=== PATIENT | male | born 1985 | race Caucasian/White ===

== ENCOUNTER 2016-07-12 22:37 | Emergency (ER) | payer MEDICARE ==
[2016-07-12 23:00] LABS: URINE BILIRUBIN NEGATIVE (NEGATIVE); URINE BLOOD NEGATIVE (NEGATIVE); URINE GLUCOSE (UA) NORMAL (NORMAL); URINE KETONE NEGATIVE (NEGATIVE); URINE LEUKOCYTE ESTERASE TRACE (NEGATIVE); URINE NITRATE NEGATIVE (NEGATIVE); URINE PROTEIN NEGATIVE (NEGATIVE); UROBILINOGEN NORMAL mg/dL (<1.0)
[2016-07-12 23:11] LABS: BASO % 0.2 % (0.2-1.2); EOS # 0.2 10_X3_uL (0.0-0.5); GRAN # 6.9 10_X3_uL (1.8-5.4); HEMATOCRIT 43.7 % (40-51); HEMOGLOBIN 14.5 g/dL (13.7-17.5); LYMPH # 2.2 10_X3_uL (1.3-3.6); LYMPH % 21.9 % (21.8-53.1); MEAN CORPUSCULAR HEMOGLOBIN 31.7 pg (27.0-33.0); MEAN CORPUSCULAR HGB CONC 33.2 g/dL (32.0-36.0); MEAN CORPUSCULAR VOLUME 95.6 fL (79-92); MEAN PLATELET VOLUME 8.9 fl (7.5-11.5); MONO # 0.7 10_X3_uL (0.3-0.8); MONO % 6.9 % (5.3-12.2); PLATELET COUNT 264 x10_3/uL (163-337); RED BLOOD COUNT 4.57 x10_6/uL (4.6-6.1)
[2016-07-12 23:12] LABS: URINE RBC 0-5 /[HPF] (0-2); URINE WBC 0-5 /[HPF] (0-3)
[2016-07-12 23:23] LABS: ALBUMIN 4.2 gm/dL (3.4-5.0); ALKALINE PHOSPHATASE 99 U/L (50-136); ALT/SGPT 395 U/L (7.53-40.17); AST/SGOT 222 U/L (6.66-35.34); BILIRUBIN,TOTAL 0.31 mg/dL (0.0-1.0); BLOOD UREA NITROGEN 8 mg/dL (7-18); CALCIUM 9.1 mg/dL (8.7-10.7); CARBON DIOXIDE 28 mmol/L (21-32); CREATININE 0.7 mg/dL (0.6-1.3); GLUCOSE,RANDOM 87 mg/dL (70-99); POTASSIUM 4.2 mmol/L (3.5-5.1); SODIUM 139 mmol/L (136-145); TOTAL PROTEIN 7.5 gm/dL (6.4-8.2)
[2016-07-12 23:26] LABS: ACETAMINOPHEN < 15.0 ug/ml (10.0-30.0); ETHYL ALCOHOL < 10 mg/dl
== END 2016-07-13 00:30 | disposition home or self-care (01) ==
LOC: ER 22:37
PROVIDERS: Emergency Medicine
DX: F32.9 Major depressive disorder, single episode, unspecified (principal); R45.851 Suicidal ideations; F41.9 Anxiety disorder, unspecified; Z63.4 Disappearance and death of family member; F17.210 Nicotine dependence, cigarettes, uncomplicated
CPT/HCPCS: 36415; 80053; 80307; 81001; 85025; 93005; 99284-25; G0480

== ENCOUNTER 2016-08-10 02:29 | Emergency (ER) | payer MEDICARE ==
[2016-08-13 15:09] LABS: HBS AG SCREEN Non Reactive (NR); HCV Reactive (NR)
== END 2016-08-10 04:19 | disposition home or self-care (01) ==
LOC: ER 02:29
PROVIDERS: Emergency Medicine
DX: S01.01XA Laceration without foreign body of scalp, initial encounter (principal); S80.01XA Contusion of right knee, initial encounter; S41.012A Laceration without foreign body of left shoulder, initial encounter; T14.8 Other injury of unspecified body region; Y04.0XXA Assault by unarmed brawl or fight, initial encounter; Y92.019 Unspecified place in single-family (private) house as the place of occurrence of the external cause; F19.10 Other psychoactive substance abuse, uncomplicated; F15.129 Other stimulant abuse with intoxication, unspecified; F32.9 Major depressive disorder, single episode, unspecified; F17.210 Nicotine dependence, cigarettes, uncomplicated; R51 Headache
CPT/HCPCS: 12001; 36415; 70450; 71020; 73564; 80074; 80307; 90471; 90715; 99070; 99284-25

== ENCOUNTER 2016-08-11 00:10 | Emergency (ER) | payer MEDICARE | END 2016-08-11 01:38 | disposition left against medical advice (07) | LOC: ER 00:10 | DX: Z53.21 Procedure and treatment not carried out due to patient leaving prior to being seen by health care provider (principal) | CPT/HCPCS: 99211 ==